=== PATIENT | male | born 1980 | race Caucasian/White ===

== ENCOUNTER 2018-01-19 14:52 | Emergency (ER) | payer OTHER ==
[~2018-01-19] VITALS: Ht 182.9 cm; Wt 99.8 kg
[2018-01-19 15:19] LABS: ABSOLUTE BASOPHILS 0.1 thou/uL (0.0-0.2); ABSOLUTE MONOCYTES 0.6 thou/uL (0.0-1.2); ABSOLUTE NEUTROPHILS 7.2 thou/uL (1.6-8.1); BASOPHILS 0.6 %; EOSINOPHILS 0.4 %; HEMATOCRIT 48.6 % (42.0-52.0); HEMOGLOBIN 16.9 gm/dL (14.0-18.0); LYMPHOCYTES 20.3 %; MCH 30.8 pg (26.0-34.0); MCHC 34.7 g/dL (28.0-37.0); MCV 88.8 fL (80.0-100.0); MONOCYTES 6.3 %; MPV 7.6 fl. (7.2-11.1); NUCLEATED RBCS 0 /100WBC; PLATELET COUNT* 244 thou/uL (150-400); POLYS 72.4 %; RBC 5.47 mil/uL (4.50-6.00); RDW-CV 12.5 % (10.5-14.5); WBC 9.9 thou/uL (4.0-11.0)
[2018-01-19 15:28] LABS: ANION GAP 11 mmol/L (7-16); BUN 25 mg/dL (7-18); CALCIUM 9.4 mg/dL (8.5-10.1); CHLORIDE 104 mmol/L (98-107); CO2 25 mmol/L (21-32); GLUCOSE 98 mg/dL (70-99); POTASSIUM 3.7 mmol/L (3.5-5.1); SODIUM 140 mmol/L (136-145)
[2018-01-19 15:35] LABS: ALBUMIN 4.1 g/dL (3.4-5.0); ALKALINE PHOSPHATASE 95 U/L (46-116); SGOT 22 U/L (15-37); SGPT 16 U/L (30-65); TOTAL BILIRUBIN 1.3 mg/dL (<0.1-1.0); TOTAL PROTEIN 7.6 g/dL (6.4-8.2); TROPONIN-I LEVEL <0.06 ng/mL (<0.06)
[2018-01-19 15:48] VITALS: BP 132/81
--- NOTE | 2018-01-20 13:06 | EKG ---
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
== END 2018-01-19 15:49 | disposition home or self-care (01) ==
LOC: M.ERS 14:52
PROVIDERS: Physician Assistant
DX: Z71.1 Person with feared health complaint in whom no diagnosis is made (principal); F41.9 Anxiety disorder, unspecified

== ENCOUNTER 2018-03-13 00:41 | Emergency (ER) | payer OTHER ==
[~2018-03-13] VITALS: Ht 182.9 cm; Wt 99.8 kg
[2018-03-13 00:43] VITALS: BP 143/82
--- NOTE | 2018-03-13 09:16 | EKG ---
[place] [address] ELECTROCARDIOGRAM REPORT Name: MARTINA GABRIEL SR Room: [facility]#: [id number] Admission: 03/13/18 Attend Phys: Discharge: Date of : [birth year] Report #: [id number] THIS REPORT FOR: //name// [facility] ED Test Date: 2018-03-13 Test Time: 00:49:45 Pat Name: MARTINA GABRIEL Department: Room: Gender: M Rn Medical Inpatient Services: JASON : 1980 Requested By: Emerald Gray Order Number: [id number] MD: Bob Clarke Measurements Intervals [place] Rate: 93 P: 39 [place]: 146 QRS: 27 QRSD: 97 T: 42 QT: 349 QTc: 435 Interpretive Statements Sinus rhythm Compared to ECG 01/19/2018 15:01:46 No significant changes Electronically Signed On 03-13-2018 9:16:09 CDT by Bob Clarke [email or web address] <ELECTRONICALLY SIGNED> By: Bob Clarke MD, [facility] 03/13/18 0916 0049 0049 Bob Clarke MD, FACC /EPI
== END 2018-03-13 01:04 ==
LOC: M.ERS 00:41
DX: F41.9 Anxiety disorder, unspecified (principal); F17.210 Nicotine dependence, cigarettes, uncomplicated; Z90.49 Acquired absence of other specified parts of digestive tract; Z88.1 Allergy status to other antibiotic agents

== ENCOUNTER 2018-05-29 00:03 | Emergency (ER) | payer OTHER ==
[~2018-05-29] VITALS: Ht 182.9 cm; Wt 87.1 kg
[2018-05-29] MEDS ORDERED: AUGMENTIN 875-1 EACH PO (00:28)
[2018-05-29 01:00] VITALS: BP 0/0
== END 2018-05-29 01:00 | disposition home or self-care (01) ==
LOC: M.ERS 00:03
DX: S51.831A Puncture wound without foreign body of right forearm, initial encounter (principal); S81.831A Puncture wound without foreign body, right lower leg, initial encounter; S61.432A Puncture wound without foreign body of left hand, initial encounter; F41.9 Anxiety disorder, unspecified; F17.210 Nicotine dependence, cigarettes, uncomplicated; Z90.49 Acquired absence of other specified parts of digestive tract; W54.0XXA Bitten by dog, initial encounter; Y93.89 Activity, other specified; Y92.89 Other specified places as the place of occurrence of the external cause; Y99.8 Other external cause status

== ENCOUNTER 2018-07-25 15:31 | Emergency (ER) | payer OTHER ==
[~2018-07-25] VITALS: Ht 182.9 cm; Wt 83.9 kg
[~2018-07-25 15:31] MED LIST: AUGMENTIN 875-1 EACH PO
[2018-07-25] MEDS ORDERED: NOHOMEMEDICATIONS (15:43)
[2018-07-25 16:18] LABS: ABSOLUTE LYMPHOCYTES 1.1 thou/uL (0.8-5.3); ABSOLUTE MONOCYTES 0.6 thou/uL (0.0-1.2); ABSOLUTE NEUTROPHILS 8.1 thou/uL (1.6-8.1); BASOPHILS 0.4 %; EOSINOPHILS 0.3 %; HEMATOCRIT 47.5 % (42.0-52.0); HEMOGLOBIN 16.5 gm/dL (14.0-18.0); LYMPHOCYTES 11.6 %; MCHC 34.8 g/dL (28.0-37.0); MCV 88.9 fL (80.0-100.0); MONOCYTES 5.8 %; MPV 7.7 fl. (7.2-11.1); NUCLEATED RBCS 0 /100WBC; PLATELET COUNT* 245 thou/uL (150-400); POLYS 81.9 %; RBC 5.34 mil/uL (4.50-6.00); RDW-CV 12.9 % (10.5-14.5); WBC 9.9 thou/uL (4.0-11.0)
[2018-07-25 16:30] LABS: ANION GAP 4 mmol/L (7-16); BUN 20 mg/dL (7-18); CALCIUM 8.8 mg/dL (8.5-10.1); CHLORIDE 101 mmol/L (98-107); CO2 29 mmol/L (21-32); CREATININE 0.9 mg/dL (0.6-1.3); GLUCOSE 154 mg/dL (70-99); POTASSIUM 3.8 mmol/L (3.5-5.1); SODIUM 134 mmol/L (136-145)
[2018-07-25 16:37] LABS: URINE BLOOD NEGATIVE (Negative); URINE CLARITY CLEAR; URINE COLOR YELLOW; URINE GLUCOSE-RANDOM NEGATIVE (Negative); URINE KETONES NEGATIVE (Negative); URINE LEUKOCYTES-REFLEX NEGATIVE (Negative); URINE NITRITE-REFLEX NEGATIVE (Negative); URINE PROTEIN NEGATIVE (Negative); URINE SPECIFIC GRAVITY >= 1.030 (1.005-1.030); URINE UROBILINOGEN 0.2 E.U./dl (0.2-1.0)
[2018-07-25 16:37] LABS: ALBUMIN 3.7 g/dL (3.4-5.0); ALKALINE PHOSPHATASE 87 U/L (46-116); SGOT 21 U/L (15-37); SGPT 15 U/L (30-65); TOTAL BILIRUBIN 1.3 mg/dL (<0.1-1.0); TOTAL PROTEIN 7.6 g/dL (6.4-8.2); TROPONIN-I LEVEL <0.06 ng/mL (<0.06)
[2018-07-25 16:46] LABS: ICTOTEST (BILI CONFIRMATORY) Negative (Negative); URINE BILIRUBIN 1+ (Negative)
[2018-07-25 17:09] LABS: AMP/METHAMP POSITIVE (Negative); BARBITURATES Negative (Negative); BENZODIAZEPINES Negative (Negative); COCAINE Negative (Negative); METHADONE Negative (Negative); OPIATES Negative (Negative); PCP Negative (Negative); THC Negative (Negative)
[2018-07-25] MEDS ORDERED: BACTRIM DS TAB1 EACH PO (17:23)
[2018-07-25 17:31] VITALS: BP 117/88
--- NOTE | 2018-07-26 11:42 | EKG ---
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
== END 2018-07-25 17:32 ==
LOC: M.ERS 15:31
PROVIDERS: Emergency Medicine Emergency Medical Services
DX: R42 Dizziness and giddiness (principal); L73.9 Follicular disorder, unspecified; F41.9 Anxiety disorder, unspecified; Z90.49 Acquired absence of other specified parts of digestive tract; F17.210 Nicotine dependence, cigarettes, uncomplicated

== ENCOUNTER 2021-04-26 07:36 | Emergency (ER) | payer OTHER ==
[~2021-04-26] VITALS: Ht 182.9 cm; Wt 90.7 kg
[~2021-04-26 07:36] MED LIST changes: +BACTRIM DS TAB1 EACH PO; +NOHOMEMEDICATIONS
[2021-04-26] MEDS ORDERED: CEPHALEXIN500 MG PO (08:02)
[2021-04-26] MEDS ORDERED: PERCOCET PO (08:02)
[2021-04-26 08:11] VITALS: BP 136/85
== END 2021-04-26 08:11 | disposition home or self-care (01) ==
LOC: M.ERS 07:36
DX: S80.12XA Contusion of left lower leg, initial encounter (principal); S80.11XA Contusion of right lower leg, initial encounter; F17.210 Nicotine dependence, cigarettes, uncomplicated; W34.00XA Accidental discharge from unspecified firearms or gun, initial encounter; Y93.89 Activity, other specified; Y92.89 Other specified places as the place of occurrence of the external cause; Y99.8 Other external cause status